=== PATIENT | female | born 1990 | race Caucasian/White ===

== ENCOUNTER 2016-12-09 22:46 | Emergency (ER) | payer SELFPAY ==
--- NOTE | 2016-12-09 23:15 | NUR ---
PATIENT LEFT WITHOUT BEING SEEN BY DR. LOZADA. NO FURTHER CARE PROVIDED FOR PATIENT.
== END 2016-12-09 23:15 | disposition left against medical advice (07) ==
LOC: MED 22:46
DX: R00.2 Palpitations (principal); R07.89 Other chest pain; Z53.21 Procedure and treatment not carried out due to patient leaving prior to being seen by health care provider